=== PATIENT | female | born 1950 | race American Indian/Alaskan Native ===

== ENCOUNTER 2022-04-21 14:20 | Inpatient (IN) | payer MEDICARE ==
--- NOTE | 2022-04-21 17:32 | Emergency Department Report ---
ED Neuro Deficit HPI - General Chief Complaint: Weakness Stated Complaint: AMS/WEAKNESS Time Seen by Provider: 04/21/22 16:55 Source: family, EMS Mode of arrival: Stretcher Limitations: No Limitations - History of Present Illness Initial Comments: 72-year-old female female with a past medical history of elevated cholesterol, hypertension, heart murmur, "heart condition", and possible previous CVA/CVA in January with similar presentation presents to the hospital complaints of abnormal speech that occurred after mowing the lawn outside around 12:01 PM. Patient denies pain. Patient complains of generalized weakness. Patient also complains of some urinary incontinence which is similar to her previous presentation in January. In January she was admitted to a [place] facility and under went stroke/TIA work-up including MRI. Results unknown. Patient states she was discharged without neurologic deficits at that time. 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 Code stroke initiated after my evaluation - Related Data Allergies/Adverse Reactions: Allergies Allergy/AdvReac Type Severity Reaction Status Date / Time Iodinated Contrast Media AdvReac Angioedema Verified 04/21/22 18:42 shellfish derived AdvReac Angioedema Verified 04/21/22 18:42 ED Review of Systems ROS: Stated complaint: AMS/WEAKNESS Other details as noted in HPI Comment: All other systems reviewed and negative ED Past Medical Hx - Social History Smoking Status: Never Smoker ED Neuro Physical Exam - General Limitations: Physical Limitation Suspected Stroke: Yes - NIHSS Assessment Interval: Baseline 1a. Level of Consciousness: alert/keenly responsive 1b. LOC Questions: answers both correctly 1c. LOC Commands: performs tasks correctly 2. Best Gaze: normal 3. Visual: no visual loss 4. Facial Palsy: normal symmetrical movement 5b. Motor Arm Right: no drift 5a. Motor Arm Left: no drift 6a. Motor Leg Left: no drift 6b. Motor Leg Right: no drift 7. Limb Ataxia: absent 8. Sensory: normal 9. Best Language: no aphasia 10. Dysarthria: mild/moderate dysarthria 11. Extinction/Inattention: no abnormality Total Score: 1 Stroke Severity: Minor Stroke - Other Other exam information: General: No acute distress Head: Atraumatic Eyes: normal appearance ENT: Moist mucous membranes Neck: Normal appearance, no midline tenderness Chest: Clear to auscultation bilaterally CV: Regular rate and rhythm Abdomen: Soft, normal bowel sounds, nontender, nondistended, no rebound or guarding Back: Normal inspection Extremity: Normal inspection, full range of motion Neuro: Alert O x 3, no facial asymmetry, speech is abnormal. Patient appears to be pursing her lips shut while trying to speak, see NIH stroke scale. No other deficits noted Psych: Appropriate behavior Skin: No rash ED Course Vital Signs 04/21/22 04/21/22 04/21/22 14:56 17:01 18:39 Temperature 98.9 F Pulse Rate 80 75 65 Respiratory 16 17 17 Rate Blood Pressure 140/80 144/78 159/94 [Left] O2 Sat by Pulse 97 98 99 Oximetry 04/21/22 19:36 Temperature Pulse Rate Respiratory 10 L Rate Blood Pressure [Left] O2 Sat by Pulse 97 Oximetry - Consultations Consultation #1: 04/21/22 17: 30 Neurology consultation please refer to note - Lab Data Result diagrams: 04/21/22 17:33 04/21/22 17:33 Lab Results 04/21/22 04/21/22 04/21/22 Range/Units 17:33 17:33 17:33 WBC 6.0 (4.5-11.0) K/mm3 RBC 4.57 (3.65-5.03) M/mm3 Hgb 13.9 (10.1-14.3) gm/dl Hct 40.0 (30.3-42.9) % MCV 88 (79-97) fl MCH 30 (28-32) pg MCHC 35 H (30-34) % RDW 12.9 L (13.2-15.2) % Plt Count 183 (140-440) K/mm3 Lymph % (Auto) 26.2 (13.4-35.0) % Cross % (Auto) 9.8 H (0.0-7.3) % Eos % (Auto) 0.7 (0.0-4.3) % Baso % (Auto) 0.3 (0.0-1.8) % Lymph # (Auto) 1.6 (1.2-5.4) K/mm3 Cross # (Auto) 0.6 (0.0-0.8) K/mm3 Eos # (Auto) 0.0 (0.0-0.4) K/mm3 Baso # (Auto) 0.0 (0.0-0.1) K/mm3 Seg Neutrophils % 63.0 (40.0-70.0) % Seg Neutrophils # 3.8 (1.8-7.7) K/mm3 PT 13.6 (12.2-14.9) Sec. INR 0.94 (0.87-1.13) APTT 30.5 (24.2-36.6) Sec. Thrombin Time 15.0 L (15.1-19.6) Sec. Sodium 142 (137-145) mmol/L Potassium 4.1 (3.6-5.0) mmol/L Chloride 102.6 (98-107) mmol/L Carbon Dioxide 30 (22-30) mmol/L Anion Gap 14 mmol/L BUN 18 H (7-17) mg/dL Creatinine 1.2 (0.6-1.2) mg/dL Estimated GFR 44 ml/min BUN/Creatinine Ratio 15 % Glucose 107 H (65-100) mg/dL Calcium 9.6 (8.4-10.2) mg/dL Magnesium 2.20 (1.7-2.3) mg/dL Total Bilirubin 0.60 (0.1-1.2) mg/dL AST 17 (5-40) units/L ALT 12 (7-56) units/L Alkaline Phosphatase 76 (35-129) units/L Total Creatine Kinase 108 (30-135) units/L CK-MB (CK-2) 2.5 (0.0-4.0) ng/mL CK-MB (CK-2) Rel Index 2.3 (0-4) Troponin T < 0.010 (0.00-0.029) ng/mL Total Protein 7.1 (6.3-8.2) g/dL Albumin 4.2 (3.9-5) g/dL Albumin/Globulin Ratio 1.4 % TSH (0.270-4.200) mlU/mL Free T4 (0.76-1.46) ng/dL Plasma/Serum Alcohol (0-0.07) % 04/21/22 04/21/22 Range/Units 17:33 17:33 WBC (4.5-11.0) K/mm3 RBC (3.65-5.03) M/mm3 Hgb (10.1-14.3) gm/dl Hct (30.3-42.9) % MCV (79-97) fl MCH (28-32) pg MCHC (30-34) % RDW (13.2-15.2) % Plt Count (140-440) K/mm3 Lymph % (Auto) (13.4-35.0) % Cross % (Auto) (0.0-7.3) % Eos % (Auto) (0.0-4.3) % Baso % (Auto) (0.0-1.8) % Lymph # (Auto) (1.2-5.4) K/mm3 Cross # (Auto) (0.0-0.8) K/mm3 Eos # (Auto) (0.0-0.4) K/mm3 Baso # (Auto) (0.0-0.1) K/mm3 Seg Neutrophils % (40.0-70.0) % Seg Neutrophils # (1.8-7.7) K/mm3 PT (12.2-14.9) Sec. INR (0.87-1.13) APTT (24.2-36.6) Sec. Thrombin Time (15.1-19.6) Sec. Sodium (137-145) mmol/L Potassium (3.6-5.0) mmol/L Chloride (98-107) mmol/L Carbon Dioxide (22-30) mmol/L Anion Gap mmol/L BUN (7-17) mg/dL Creatinine (0.6-1.2) mg/dL Estimated GFR ml/min BUN/Creatinine Ratio % Glucose (65-100) mg/dL Calcium (8.4-10.2) mg/dL Magnesium (1.7-2.3) mg/dL Total Bilirubin (0.1-1.2) mg/dL AST (5-40) units/L ALT (7-56) units/L Alkaline Phosphatase (35-129) units/L Total Creatine Kinase (30-135) units/L CK-MB (CK-2) (0.0-4.0) ng/mL CK-MB (CK-2) Rel Index (0-4) Troponin T (0.00-0.029) ng/mL Total Protein (6.3-8.2) g/dL Albumin (3.9-5) g/dL Albumin/Globulin Ratio % TSH 1.360 (0.270-4.200) mlU/mL Free T4 1.17 (0.76-1.46) ng/dL Plasma/Serum Alcohol < 0.01 (0-0.07) % - Radiology Data Radiology results: report reviewed CT HEAD WITHOUT CONTRAST INDICATION / CLINICAL INFORMATION: Stroke symptoms. TECHNIQUE: All CT scans at this location are performed using CT dose reduction for ALARA by means of automated exposure control. COMPARISON: None available. FINDINGS: CEREBRAL/CEREBELLAR PARENCHYMA: The cerebral and cerebellar hemispheres are normal for age. No CT evidence for an acute or subacute territorial infarct. HEMORRHAGE: No acute intra-axial hemorrhage or extra-axial fluid collection. MASS: No mass or mass effect. VENTRICULAR SYSTEM: Normal in size and morphology for the patient's age. ORBITS: Normal as visualized. SOFT TISSUES/SKULL: No scalp hematoma or skull fracture. Benign left frontal scalp lipoma (series 2, image 14). PARANASAL SINUSES/MASTOID AIR CELLS: Normal as visualized. IMPRESSION: 1. No acute intracranial process. - Medical Decision Making 72-year-old female presents with with slurred speech without any other deficits. CT head unremarkable. Patient states she is allergic to IV contrast therefore CT angiogram not performed. Differential includes acute CVA, TIA, suprat entorium, generalized weakness, UTI, or encephalopathy. Patient will be admitted to the hospital service for further work-up and evaluation. Urine collection pending at disposition Critical Care Time: No Critical care attestation.: If time is entered above; I have spent that time in minutes in the direct care of this critically ill patient, excluding procedure time. ED Disposition Clinical Impression: Acute focal neurological deficit, Slurred speech Disposition: ADMITTED INPATIENT Is pt being admited?: Yes Condition: Stable Time of Disposition: 19:48
--- NOTE | 2022-04-21 17:39 | Consultation ---
History of Present Illness - Reason for Consult Consult date: 04/21/22 - History of Present Illness [facility] Consult Note # Demographics Consult Type: Acute Stroke Level 1 (0-4.5 hrs) Patient Location: Emergency Room First Name: janak Last Name: alexei Date of : 1950 Age: 72 Gender: Female Facility: [facility] Time of Initial Page ( Time): 04/21/2022, 17:31 Time of Return Call ( Time): 04/21/2022, 17:31 # HPI History: 72yo woman who was cutting grass, and then went into the house and sat down in her chair. She felt weak all over, and did have LOC episode. She is not moving her lips. She was admitted in January to another hospital, and had evaluation with MRI; unsure what the result was at that time. Last Known Normal: between 12PM-1PM. # Scores Time of exam and NIHSS ( Time): 04/21/2022, 17:33 Level of Consciousness 1a: [0] = Alert; keenly responsive LOC Questions 1b: [0] = Answers both questions correctly LOC Commands 1c: [0] = Performs both tasks correctly Best Gaze 2: [0] = Normal Visual 3: [0] = No visual loss Facial Palsy 4: [1] = Minor paralysis Motor Arm Left 5a: [0] = No drift Motor Arm Right 5b: [0] = No drift Motor Leg Left 6a: [0] = No drift Motor Leg Right 6b: [0] = No drift Limb Ataxia 7: [0] = Absent Sensory 8: [0] = Normal Best Language 9: [0] = No aphasia Dysarthria 10: [0] = Normal Extinction and Inattention 11: [0] = No abnormality NIHSS Total: 1 # Assessment Impression: Ischemic Stroke (Acute) vs inorganic # Plan Thrombolytic/Intervention: NOT IV Thrombolysis or IA Intervention candidate Thrombolytic Exclusion: > 4.5 hours Intraarterial Exclusion: clinically not consistent with stroke Target Blood Pressure: SBP < 220 Labs: lipid panel Imaging: (urgency: STAT): CT Angiogram Head and CT Angiogram Neck AND call back with results if abnormal Imaging: (urgency: routine): MRI Brain without contrast Diagnostic Test: echo without bubble study Therapy/Evaluation: NPO until swallow evaluation PT/OT evaluation speech/swallow consultation Medication: aspirin 81 mg daily DVT Prophylaxis: SCD chemical DVT prophylaxis Other: LDL < 70 If patient has any neurological deterioration please call me back immediately permissive hypertension telemetry monitoring would not pursue stroke work-up if MRI is negative I have discussed my recommendations with the referring provider Disposition: admit # Demographics First Name: janak Last Name: alexei Facility: [facility] Medications and Allergies Allergies Allergy/AdvReac Type Severity Reaction Status Date / Time No Known Allergies Allergy Verified 04/21/22 14:59 Exam - Constitutional Vitals: Temp Pulse Resp BP Pulse Ox 98.9 F 75 17 144/78 98 04/21/22 14:56 04/21/22 17:01 04/21/22 17:01 04/21/22 17:01 04/21/22 17:01
[2022-04-21 17:50] LABS: Basophils % (Auto) 0.3 % (0.0-1.8); Eosinophils % (Auto) 0.7 % (0.0-4.3); Hemoglobin 13.9 gm/dl (10.1-14.3); Lymphocytes # (Auto) 1.6 K/mm3 (1.2-5.4); Lymphocytes % (Auto) 26.2 % (13.4-35.0); Mean Corpuscular HGB Conc 35 % (30-34); Mean Corpuscular Volume 88 fl (79-97); Monocytes # (Auto) 0.6 K/mm3 (0.0-0.8); Monocytes % (Auto) 9.8 % (0.0-7.3); Platelet Count 183 K/mm3 (140-440); Red Blood Count 4.57 M/mm3 (3.65-5.03); Red Cell Distribution Width 12.9 % (13.2-15.2)
--- NOTE | 2022-04-21 17:57 | Cat Scan Report ---
CT HEAD WITHOUT CONTRAST INDICATION / CLINICAL INFORMATION: Stroke symptoms. TECHNIQUE: All CT scans at this location are performed using CT dose reduction for ALARA by means of automated exposure control. COMPARISON: None available. FINDINGS: CEREBRAL/CEREBELLAR PARENCHYMA: The cerebral and cerebellar hemispheres are normal for age. No CT kristie dence for an acute or subacute territorial infarct. HEMORRHAGE: No acute intra-axial hemorrhage or extra-axial fluid collection. MASS: No mass or mass effect. VENTRICULAR SYSTEM: Normal in size and morphology for the patient's age. ORBITS: Normal as visualized. SOFT TISSUES/SKULL: No scalp hematoma or skull fracture. Benign left frontal scalp lipoma (series 2, image 14). PARANASAL SINUSES/MASTOID AIR CELLS: Normal as visualized. IMPRESSION: 1. No acute intracranial process. Signer Name: Chris Henson MD Signed: 04/21/2022 5:53 PM Workstation Name: [employer]
[2022-04-21 18:06] LABS: Alanine Aminotransferase 12 units/L (7-56); Albumin 4.2 g/dL (3.9-5); BUN/Creatinine Ratio 15; Blood Urea Nitrogen 18 mg/dL (7-17); Calcium 9.6 mg/dL (8.4-10.2); Creatine Kinase MB 2.5 ng/mL (0.0-4.0); Hemolysis Index 6
[2022-04-21 18:17] LABS: Free T4 (Free Thyroxine) 1.17 ng/dL (0.76-1.46)
[2022-04-21 19:41] LABS: INR 0.94 (0.87-1.13)
[2022-04-21 19:42] LABS: Partial Thromboplastin Time 30.5 Sec. (24.2-36.6)
[2022-04-21] MEDS ORDERED: ACETAMINOPHEN 325 MG TAB PO PRN (19:55)
[2022-04-21] MEDS ORDERED: ONDANSETRON 4 MG/2 ML INJ IV PRN (19:55)
[2022-04-21] MEDS ORDERED: METOCLOPRAMIDE 10 MG TAB PO PRN (19:55)
[2022-04-21] MEDS ORDERED: oxyCODONE /ACETAMINOPHEN 5-325MG TAB PO PRN (19:55)
[2022-04-21] MEDS ORDERED: HYDROmorphone 0.5 MG/0.5 ML INJ IV PRN (19:55)
[2022-04-21] MEDS ORDERED: PROMETHAZINE 25 MG RECT SUPP PR PRN (19:55)
[2022-04-21] MEDS ORDERED: MAGNESIUM HYDROXIDE (MOM) ORAL LIQD UDC PO PRN (19:55)
--- NOTE | 2022-04-21 19:55 | History and Physical Report ---
History of Present Illness Chief complaint: My speech is slurred History of present illness: 72 YO Female with HTN, HLD, CVA not on antiplatelet therapy presents to ED for evaluation. Patient reports "my speech is slurred". Patient states that she was in her usual state of health and was mowing her lawn around 1200 hrs. today. Patient states that shortly after mowing her lawn she noticed that she had slurred speech and difficulty swallowing. EMS was notified and upon arrival the patient was found to be in distress with a new focal neurologic deficit. A code stroke was called and the patient was subsequent transported to [facility] for further care and evaluation of the aforementioned symptoms. The patient was seen and evaluated in the emergency department. All lab and imaging studies reviewed. Patient found to have clinical symptoms consistent with CVA. Patient initiated on CVA protocol. Teleneurology consulted in ED. Patient denies fever, chills, chest pain, palpitation, productive cough, skin rash, recent contact, known exposure to COVID-19. No prior admission for review. No medication listed at time of admission for reconciliation. Advanced care planning conducted in ED. Past History Past Medical History: hypertension, hyperlipidemia, stroke, other (See HPI) Past Surgical History: No surgical history, Other (Reviewed) Social history: single. denies: smoking, alcohol abuse, prescription drug abuse Family history: hypertension Medications and Allergies Allergies Allergy/AdvReac Type Severity Reaction Status Date / Time Iodinated Contrast Media AdvReac Angioedema Verified 04/21/22 18:42 shellfish derived AdvReac Angioedema Verified 04/21/22 18:42 Review of Systems Constitutional: no weight loss, no weight gain, no fever, no sweats Ears, nose, mouth and throat: no ear pain, no ear discharge, no tinnitis, no decreased hearing Breasts: no change in shape, no mass Cardiovascular: no orthopnea, no palpitations, no edema, no syncope Respiratory: no cough, no excessive sputum, no dyspnea on exertion Gastrointestinal: no abdominal pain, no vomiting, no change in bowel habits, no hematemesis Genitourinary Female: no pelvic pain, no flank pain, no dysuria, no urinary frequency, no urgency Rectal: no pain, no incontinence, no bleeding Musculoskeletal: no neck stiffness, no neck pain, no shooting arm pain, no arm numbness/tingling, no low back pain Integumentary: no rash, no pruritis, no sores Neurological: weakness, change in speech, motor disturbance Psychiatric: no anxiety, no memory loss, no change in sleep habits, no insomnia, no hypersomnia, no change in libido, no suicidal ideation, no hallucinations Endocrine: no polyphagia, no polydipsia, no polyuria Hematologic/Lymphatic: no easy bruising, no easy bleeding Allergic/Immunologic: no urticaria, no allergic rhinitis, no wheezing Exam - Constitutional Vitals: Temp Pulse Resp BP Pulse Ox 98.9 F 65 10 L 159/94 97 04/21/22 14:56 04/21/22 18:39 04/21/22 19:36 04/21/22 18:39 04/21/22 19:36 General appearance: Present: mild distress - EENT Eyes: Present: PERRL ENT: hearing intact, clear oral mucosa - Neck Neck: Present: supple, normal ROM - Respiratory Respiratory effort: normal Respiratory: bilateral: CTA - Cardiovascular Heart Sounds: Present: S1 & S2. Absent: rub, click - Extremities Extremities: pulses symmetrical, No edema Peripheral Pulses: within normal limits - Abdominal General gastrointestinal: Present: soft, non-tender, non-distended, normal bowel sounds Female genitourinary: Present: normal - Integumentary Integumentary: Present: clear, warm, dry - Musculoskeletal Musculoskeletal: gait normal, strength equal bilaterally - Psychiatric Psychiatric: appropriate mood/affect, intact judgment & insight - Neurologic Neurologic: CNII-XII intact, moves all extremities HEART Score - HEART Score Troponin: Troponin T < 0.010 ng/mL (0.00-0.029) 04/21/22 17:33 Results - Labs CBC & Chem 7: 04/21/22 17:33 04/21/22 17:33 Labs: Abnormal lab results 04/21/22 04/21/22 04/21/22 Range/Units 17:33 17:33 17:33 MCHC 35 H (30-34) % RDW 12.9 L (13.2-15.2) % [place] % (Auto) 9.8 H (0.0-7.3) % Thrombin Time 15.0 L (15.1-19.6) Sec. BUN 18 H (7-17) mg/dL Glucose 107 H (65-100) mg/dL Assessment and Plan - Patient Problems (1) CVA (cerebral vascular accident) Current Visit: Yes Status: Acute Plan to address problem: CVA protocol: CT scan brain, physical therapy consulted, Occupational Therapy consulted, speech therapy consulted, dual antiplatelet therapy, carotid Doppler, echocardiogram, lipid panel, statin therapy (2) Dysphagia due to recent stroke Current Visit: Yes Status: Acute Plan to address problem: Speech therapy consulted, bedside swallow eval. (3) Hypertension Current Visit: Yes Status: Acute Qualifiers: Hypertension type: primary hypertension Qualified Code(s): I10 - Essential (primary) hypertension Plan to address problem: Monitor blood pressure every shift, can permissive hypertension overnight. (4) Hyperlipidemia Current Visit: Yes Status: Acute Qualifiers: Hyperlipidemia type: mixed hyperlipidemia Qualified Code(s): E78.2 - Mixed hyperlipidemia Plan to address problem: Lipid panel, statin therapy (5) DVT prophylaxis Current Visit: Yes Status: Acute Plan to address problem: SCD to bilateral lower extremities while in bed (6) Advance care planning Current Visit: Yes Status: Acute Plan to address problem: Disease education data, care plan discussed, diagnoses discussed, prognosis discussed, patient is full code. Patient knowledges understanding and agreement with care plan, +30 minutes. (7) Preventative health care Current Visit: Yes Status: Acute Plan to address problem: Patient counseled regarding medication compliance, outpatient follow-up with primary care physician for all age and risk factor appropriate screening test. +30 minutes.
[2022-04-21 20:28] LABS: Color,Urine Yellow (Yellow)
[2022-04-21 20:30] LABS: Bacteria,Urine 1+ /HPF (Negative); Mucus,Urine 1+ /HPF
[2022-04-21 20:31] LABS: Amphetamine Screen,Urine Negative; Benzodiazepines Screen,Urine Negative; Cannabinoid Screen,Urine Negative; Cocaine Screen,Urine Negative; Methadone Screen,Urine Negative; Opiate Screen,Urine Negative
--- NOTE | 2022-04-22 09:53 | Progress Note ---
Assessment and Plan Assessment and plan: 72 YO Female with HTN, HLD, CVA not on antiplatelet therapy presents to ED for evaluation of dysarthria and dysphagia. The patient was admitted with diagnosis below: Acute CVA Dysphagia/dysarthria Hypertension Hyperlipidemia 04/22/2022. Patient reports similar symptoms in January of this year with the patient was treated at [facility]. We will attempt obtain old records from [facility]. Patient's symptoms have completely resolved and she is back to her baseline with regards to her speech and swallowing. CT scan was negative for CVA. We will follow-up MRI and echocardiogram. Anticipate discharge later today or in a.m. Continue secondary prevention with Lipitor and aspirin History Interval history: No new issues overnight Hospitalist Physical - Constitutional Vitals: Temp Pulse Resp BP Pulse Ox 97.8 F 117 H 18 158/83 97 04/21/22 22:47 04/21/22 23:41 04/22/22 00:00 04/21/22 23:41 04/22/22 08:48 General appearance: Present: no acute distress - EENT Eyes: Present: PERRL, EOM intact ENT: hearing intact, clear oral mucosa, dentition normal - Neck Neck: Present: supple, normal ROM - Respiratory Respiratory effort: normal Respiratory: bilateral: CTA - Cardiovascular Rhythm: regular Heart Sounds: Present: S1 & S2. Absent: gallop, rub - Extremities Extremities: no ischemia, No edema, Full ROM - Abdominal General gastrointestinal: soft, non-tender, non-distended, normal bowel sounds - Integumentary Integumentary: Present: clear, warm, dry - Neurologic Neurologic: CNII-XII intact, moves all extremities HEART Score - HEART Score Troponin: Troponin T < 0.010 ng/mL (0.00-0.029) 04/21/22 17:33 Results - Labs CBC & Chem 7: 04/21/22 17:33 04/21/22 17:33 Labs: Laboratory Last Values WBC 6.0 K/mm3 (4.5-11.0) 04/21/22 17:33 RBC 4.57 M/mm3 (3.65-5.03) 04/21/22 17:33 Hgb 13.9 gm/dl (10.1-14.3) 04/21/22 17:33 Hct 40.0 % (30.3-42.9) 04/21/22 17: MCV 88 fl (79-97) 04/21/22: MCH 30 pg (28-32) 04/21/22 17: MCHC 35 % (30-34) H 04/21/22 17: RDW 12.9 % (13.2-15.2) L 04/21/22: Plt Count 183 K/mm3 (140-440) 04/21/22 17: Lymph % (Auto) 26.2 % (13.4-35.0) 04/21/22: [place] % (Auto) 9.8 % (0.0-7.3) H 04/21/22: Eos % (Auto) 0.7 % (0.0-4.3) 04/21/22: Baso % (Auto) 0.3 % (0.0-1.8) 04/21/22: Lymph # (Auto) 1.6 K/mm3 (1.2-5.4) 04/21/22 17: [place] # (Auto) 0.6 K/mm3 (0.0-0.8) 04/21/22: Eos # (Auto) 0.0 K/mm3 (0.0-0.4) 04/21/22: Baso # (Auto) 0.0 K/mm3 (0.0-0.1) 04/21/22: Seg Neutrophils % 63.0 % (40.0-70.0) 04/21/22: Seg Neutrophils # 3.8 K/mm3 (1.8-7.7) 04/21/22: PT 13.6 Sec. (12.2-14.9) 04/21/22: INR 0.94 (0.87-1.13) 04/21/22: APTT 30.5 Sec. (24.2-36.6) 04/21/22: Thrombin Time 15.0 Sec. (15.1-19.6) L 04/21/22 17: Sodium 142 mmol/L (137-145) 04/21/22 17: Potassium 4.1 mmol/L (3.6-5.0) 04/21/22 17:33 Chloride 102.6 mmol/L (98-107) 04/21/22 17:33 Carbon Dioxide 30 mmol/L (22-30) 04/21/22 17:33 Anion Gap 14 mmol/L 04/21/22 17:33 BUN 18 mg/dL (7-17) H 04/21/22 17:33 Creatinine 1.2 mg/dL (0.6-1.2) 04/21/22 17:33 Estimated GFR 44 ml/min 04/21/22 17:33 BUN/Creatinine Ratio 15 % 04/21/22 17:33 Glucose 107 mg/dL (65-100) H 04/21/22 17:33 Calcium 9.6 mg/dL (8.4-10.2) 04/21/22 17:33 Magnesium 2.20 mg/dL (1.7-2.3) 04/21/22 17:33 Total Bilirubin 0.60 mg/dL (0.1-1.2) 04/21/22 17:33 AST 17 units/L (5-40) 04/21/22 17:33 ALT 12 units/L (7-56) 04/21/22 17:33 Alkaline Phosphatase 76 units/L (35-129) 04/21/22 17:33 Total Creatine Kinase 108 units/L (30-135) 04/21/22 17:33 CK-MB (CK-2) 2.5 ng/mL (0.0-4.0) 04/21/22 17:33 CK-MB (CK-2) Rel Index 2.3 (0-4) 04/21/22 17:33 Troponin T < 0.010 ng/mL (0.00-0.029) 04/21/22 17:33 Total Protein 7.1 g/dL (6.3-8.2) 04/21/22 17:33 Albumin 4.2 g/dL (3.9-5) 04/21/22 17:33 Albumin/Globulin Ratio 1.4 % 04/21/22 17:33 TSH 1.360 mlU/mL (0.270-4.200) 04/21/22 17:33 Free T4 1.17 ng/dL (0.76-1.46) 04/21/22 17:33 Urine Color Yellow (Yellow) 04/21/22 19:32 Urine Turbidity Clear (Clear) 04/21/22 19:32 Specific [place] (Man) 1.025 (1.003-1.030) 04/21/22 19:32 Ur Protein (Man) 1+ mg/dL (Negative) 04/21/22 19:32 Ur Ketones (Man) Negative (Negative) 04/21/22 19:32 Ur Nitrite (Man) Negative (Negative) 04/21/22 19:32 Urine Bilirubin (Man) Negative (Negative) 04/21/22 19:32 Leukocyte Esterase (Man) Negative (Negative) 04/21/22 19:32 Urine WBC (Auto) 1.0 /HPF (0.0-6.0) 04/21/22 19:32 Urine RBC (Auto) 1.0 /HPF (0.0-6.0) 04/21/22 19:32 U Epithel Cells (Auto) 11.0 /HPF (0-13.0) 04/21/22 19:32 Urine Bacteria (Auto) 1+ /HPF (Negative) 04/21/22 19:32 Urine RBC (Manual) Trace (Negative) 04/21/22 19:32 Urine Mucus 1+ /HPF 04/21/22 19:32 Urine Opiates Screen Negative 04/21/22 19:32 Urine Methadone Screen Negative 04/21/22 19:32 Ur Barbiturates Screen Negative 04/21/22 19:32 Ur Phencyclidine Scrn Negative 04/21/22 19:32 Ur Amphetamines Screen Negative 04/21/22 19:32 U Benzodiazepines Scrn Negative 04/21/22 19:32 Urine Cocaine Screen Negative 04/21/22 19:32 U Marijuana (THC) Screen Negative 04/21/22 19:32 Drugs of Abuse Note Disclamer 04/21/22 19:32 Plasma/Serum Alcohol < 0.01 % (0-0.07) 04/21/22 17:33 Active Medications - Current Medications Current Medications: Generic Name Dose Route Start Last Admin Trade Name Freq PRN Reason Stop Dose Admin Acetaminophen 650 mg 04/21/22 19:55 Acetaminophen 325 Mg Tab PO Q4H PRN Pain, Mild (1-3) Aspirin 325 mg 04/22/22 10:00 Aspirin 325 Mg Tab PO QDAY JOSHUA Atorvastatin Calcium 40 mg 04/21/22 22:00 09/02/22 23:20 Atorvastatin 40 Mg Tab PO 40 mg QHS JOSHUA Administration Bisacodyl 10 mg 04/21/22 19:55 Bisacodyl 10 Mg Rect Supp MS QDAY PRN Constipation Clopidogrel Bisulfate 75 mg 04/22/22 10:00 Clopidogrel 75 Mg Tab PO QDAY JOSHUA Hydromorphone HCl 0.5 mg 04/21/22 19:55 Hydromorphone 0.5 Mg/0.5 Ml Inj IV Q23H PRN Pain , Severe (7-10) Magnesium Hydroxide 30 ml 04/21/22 19:55 Magnesium Hydroxide (Mom) Oral Liqd Udc PO Q4H PRN Constipation Metoclopramide HCl 10 mg 04/21/22 19:55 Metoclopramide 10 Mg Tab PO Q6H PRN Nausea And Vomiting Ondansetron HCl 4 mg 04/21/22 19:55 Ondansetron 4 Mg/2 Ml Inj IV Q8H PRN Nausea And Vomiting Oxycodone/Acetaminophen 1 tab 04/21/22 19:55 Oxycodone /Acetaminophen 5-325mg Tab PO Q16H PRN Pain, Moderate (4-6) Promethazine HCl 25 mg 04/21/22 19:55 Promethazine 25 Mg Rect Supp MS Q6H PRN Nausea And Vomiting Sodium Chloride 10 ml 04/21/22 19:55 Sodium Chloride 0.9% 10 Ml Flush Syringe IV PRN PRN LINE FLUSH
[2022-04-22] MEDS: ASPIRIN 325 MG TAB PO SCH (11:57)
[2022-04-22] MEDS: CLOPIDOGREL 75 MG TAB PO SCH (11:57)
--- NOTE | 2022-04-22 14:38 | Vascular Lab Report ---
DUPLEX DOPPLER ULTRASOUND CAROTID, BILATERAL INDICATION / CLINICAL INFORMATION: stroke. COMPARISON: None available. FINDINGS: RIGHT CAROTID: No significant plaque - PLAQUE ESTIMATE (%): < 50% - CCA velocity: 82 cm/sec. - ICA peak systolic velocity: 83 cm/sec. - ICA/CCA PSV Ratio: Less than 2 Right Vertebral Artery: Antegrade flow. LEFT CAROTID: No significant plaque - PLAQUE ESTIMATE (%): < 50% - CCA velocity: 92 cm/sec. - ICA peak systolic velocity: 103 cm/sec. - ICA/CCA PSV Ratio: Less than 2 Left Vertebral Artery: Antegrade flow. IMPRESSION: 1. Right Internal Carotid Artery: Less than 50% diameter stenosis. 2. Left Internal Carotid Artery: Less than 50% diameter stenosis. Velocity criteria are extrapolated from diameter data as defined by the Society of Radiologists in Ul trasound Consensus Conference, Radiology 2003; 229;340-346. NO STENOSIS (NORMAL) - Plaque = none; ICA PSV < 125 cm/sec; ICA/CCA PSV Ratio < 2.0 <50% STENOSIS - Plaque < 50%; ICA PSV < 125 cm/sec; ICA/CCA PSV Ratio < 2.0 50-69% STENOSIS - Plaque > 50%; ICA PSV = 125-230 cm/sec; ICA/CCA PSV Ratio = 2.0-4.0 >70% BUT <100% STENOSIS - Plaque > 50%; ICA PSV > 230 cm/sec; ICA/CCA PSV Ratio > 4.0 NEAR OCCLUSION - Plaque = visible lumen; ICA PSV = high/low/none; ICA/CCA PSV Ratio = variable TOTAL OCCLUSION - Plaque = no lumen; ICA PSV = none; ICA/CCA PSV Ratio = N/A Signer Name: Oscar Knowles MD Signed: 04/22/2022 2:34 PM Workstation Name: [id number]
[2022-04-23] MEDS ORDERED: hydrALAZINE 20 MG/1 ML INJ IV ONE (06:21)
[2022-04-23] MEDS ORDERED: SODIUM CHLORIDE 0.9% 500 ML 500 ML IV SCH (07:00)
[2022-04-23] MEDS ORDERED: SODIUM CHLORIDE 0.9% 500 ML 500 ML ONE (07:05)
--- NOTE | 2022-04-23 10:36 | Progress Note ---
Assessment and Plan Assessment and plan: 72 YO Female with HTN, HLD, CVA not on antiplatelet therapy presents to ED for evaluation of dysarthria and dysphagia. The patient was admitted with diagnosis below: Acute CVA Dysphagia/dysarthria Hypertension Hyperlipidemia 04/22/2022. Patient reports similar symptoms in January of this year with the patient was treated at [facility]. We will attempt obtain old records from [facility]. Patient's symptoms have completely resolved and she is back to her baseline with regards to her speech and swallowing. CT scan was negative for CVA. We will follow-up MRI and echocardiogram. Anticipate discharge later today or in a.m. Continue secondary prevention with Lipitor and aspirin. 04/23/2022. 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 However, patient asymptomatic. Continue with IV fluid. Await MRI and echocardiogram results. Patient back to baseline neurologically. History Interval history: No new issues overnight Hospitalist Physical - Constitutional Vitals: Temp Pulse Resp BP Pulse Ox 97.7 F 64 18 170/65 97 04/23/22 05:59 04/23/22 05:59 04/23/22 05:59 04/23/22 06:23 04/23/22 05:59 General appearance: Present: no acute distress - EENT Eyes: Present: PERRL, EOM intact ENT: hearing intact, clear oral mucosa, dentition normal - Neck Neck: Present: supple, normal ROM - Respiratory Respiratory effort: normal Respiratory: bilateral: CTA - Cardiovascular Rhythm: regular Heart Sounds: Present: S1 & S2. Absent: gallop, rub - Extremities Extremities: no ischemia, No edema, Full ROM - Abdominal General gastrointestinal: soft, non-tender, non-distended, normal bowel sounds - Integumentary Integumentary: Present: clear, warm, dry - Neurologic Neurologic: CNII-XII intact, moves all extremities HEART Score - HEART Score Troponin: Troponin T < 0.010 ng/mL (0.00-0.029) 04/21/22 17:33 Results - Labs CBC & Chem 7: 04/21/22 17:33 04/21/22 17:33 Labs: Laboratory Last Values WBC 6.0 K/mm3 (4.5-11.0) 04/21/22 17:33 RBC 4.57 M/mm3 (3.65-5.03) 04/21/22 17: Hgb 13.9 gm/dl (10.1-14.3) 04/21/22 17: Hct 40.0 % (30.3-42.9) 04/21/22 17: MCV 88 fl (79-97) 04/21/22 17:33 MCH 30 pg (28-32) 04/21/22 17: MCHC 35 % (30-34) H 04/21/22 17: RDW 12.9 % (13.2-15.2) L 04/21/22 17: Plt Count 183 K/mm3 (140-440) 04/21/22 17: Lymph % (Auto) 26.2 % (13.4-35.0) 04/21/22 17:33 [place] % (Auto) 9.8 % (0.0-7.3) H 04/21/22 17: Eos % (Auto) 0.7 % (0.0-4.3) 04/21/22: Baso % (Auto) 0.3 % (0.0-1.8) 04/21/22 17: Lymph # (Auto) 1.6 K/mm3 (1.2-5.4) 04/21/22 17:33 [place] # (Auto) 0.6 K/mm3 (0.0-0.8) 04/21/22 17: Eos # (Auto) 0.0 K/mm3 (0.0-0.4) 04/21/22: Baso # (Auto) 0.0 K/mm3 (0.0-0.1) 04/21/22 17: Seg Neutrophils % 63.0 % (40.0-70.0) 04/21/22 17: Seg Neutrophils # 3.8 K/mm3 (1.8-7.7) 04/21/22 17: PT 13.6 Sec. (12.2-14.9) 04/21/22 17: INR 0.94 (0.87-1.13) 04/21/22 17: APTT 30.5 Sec. (24.2-36.6) 04/21/22 17: Thrombin Time 15.0 Sec. (15.1-19.6) L 04/21/22 17:33 Sodium 142 mmol/L (137-145) 04/21/22 17:33 Potassium 4.1 mmol/L (3.6-5.0) 04/21/22 17:33 Chloride 102.6 mmol/L (98-107) 04/21/22 17:33 Carbon Dioxide 30 mmol/L (22-30) 04/21/22 17:33 Anion Gap 14 mmol/L 04/21/22 17:33 BUN 18 mg/dL (7-17) H 04/21/22 17:33 Creatinine 1.2 mg/dL (0.6-1.2) 04/21/22 17:33 Estimated GFR 44 ml/min 04/21/22 17:33 BUN/Creatinine Ratio 15 % 04/21/22 17:33 Glucose 107 mg/dL (65-100) H 04/21/22 17:33 POC Glucose 135 mg/dL (70-105) H 04/23/22 07:05 Calcium 9.6 mg/dL (8.4-10.2) 04/21/22 17:33 Magnesium 2.20 mg/dL (1.7-2.3) 04/21/22 17:33 Total Bilirubin 0.60 mg/dL (0.1-1.2) 04/21/22 17:33 AST 17 units/L (5-40) 04/21/22 17:33 ALT 12 units/L (7-56) 04/21/22 17:33 Alkaline Phosphatase 76 units/L (35-129) 04/21/22 17:33 Total Creatine Kinase 108 units/L (30-135) 04/21/22 17:33 CK-MB (CK-2) 2.5 ng/mL (0.0-4.0) 04/21/22 17:33 CK-MB (CK-2) Rel Index 2.3 (0-4) 04/21/22 17:33 Troponin T < 0.010 ng/mL (0.00-0.029) 04/21/22 17:33 Total Protein 7.1 g/dL (6.3-8.2) 04/21/22 17:33 Albumin 4.2 g/dL (3.9-5) 04/21/22 17:33 Albumin/Globulin Ratio 1.4 % 04/21/22 17:33 TSH 1.360 mlU/mL (0.270-4.200) 04/21/22 17:33 Free T4 1.17 ng/dL (0.76-1.46) 04/21/22 17:33 Urine Color Yellow (Yellow) 04/21/22 19:32 Urine Turbidity Clear (Clear) 04/21/22 19:32 Specific [place] (Man) 1.025 (1.003-1.030) 04/21/22 19:32 Ur Protein (Man) 1+ mg/dL (Negative) 04/21/22 19:32 Ur Ketones (Man) Negative (Negative) 04/21/22 19:32 Ur Nitrite (Man) Negative (Negative) 04/21/22 19:32 Urine Bilirubin (Man) Negative (Negative) 04/21/22 19:32 Leukocyte Esterase (Man) Negative (Negative) 04/21/22 19:32 Urine WBC (Auto) 1.0 /HPF (0.0-6.0) 04/21/22 19:32 Urine RBC (Auto) 1.0 /HPF (0.0-6.0) 04/21/22 19:32 U Epithel Cells (Auto) 11.0 /HPF (0-13.0) 04/21/22 19:32 Urine Bacteria (Auto) 1+ /HPF (Negative) 04/21/22 19:32 Urine RBC (Manual) Trace (Negative) 04/21/22 19:32 Urine Mucus 1+ /HPF 04/21/22 19:32 Urine Opiates Screen Negative 04/21/22 19:32 Urine Methadone Screen Negative 04/21/22 19:32 Ur Barbiturates Screen Negative 04/21/22 19:32 Ur Phencyclidine Scrn Negative 04/21/22 19:32 Ur Amphetamines Screen Negative 04/21/22 19:32 U Benzodiazepines Scrn Negative 04/21/22 19:32 Urine Cocaine Screen Negative 04/21/22 19:32 U Marijuana (THC) Screen Negative 04/21/22 19:32 Drugs of Abuse Note Disclamer 04/21/22 19:32 Plasma/Serum Alcohol < 0.01 % (0-0.07) 04/21/22 17:33 Gill/IV: Voiding Method Toilet Active Medications - Current Medications Current Medications: Generic Name Dose Route Start Last Admin Trade Name Freq PRN Reason Stop Dose Admin Acetaminophen 650 mg 04/21/22 19:55 Acetaminophen 325 Mg Tab PO Q4H PRN Pain, Mild (1-3) Aspirin 325 mg 04/22/22 10:00 04/22/22 11:57 Aspirin 325 Mg Tab PO 325 mg QDAY JOSHUA Administration Atorvastatin Calcium 40 mg 04/21/22 22:00 04/22/22 22:33 Atorvastatin 40 Mg Tab PO 40 mg QHS JOSHUA Administration Bisacodyl 10 mg 04/21/22 19:55 Bisacodyl 10 Mg Rect Supp [place] QDAY PRN Constipation Clopidogrel Bisulfate 75 mg 04/22/22 10:00 04/22/22 11:57 Clopidogrel 75 Mg Tab PO 75 mg QDAY JOSHUA Administration Hydromorphone HCl 0.5 mg 04/21/22 19:55 Hydromorphone 0.5 Mg/0.5 Ml Inj IV Q23H PRN Pain , Severe (7-10) Sodium Chloride 500 mls @ 999 mls/hr 04/23/22 07:00 04/23/22 07:06 Nacl 0.9% 500 Ml IV 04/23/22 11:00 999 mls/hr ONCE@0700 JOSHUA Administration Magnesium Hydroxide 30 ml 04/21/22 19:55 Magnesium Hydroxide (Mom) Oral Liqd Udc PO Q4H PRN Constipation Metoclopramide HCl 10 mg 04/21/22 19:55 Metoclopramide 10 Mg Tab PO Q6H PRN Nausea And Vomiting Ondansetron HCl 4 mg 04/21/22 19:55 04/23/22 08:12 Ondansetron 4 Mg/2 Ml Inj IV 4 mg Q8H PRN Administration Nausea And Vomiting Oxycodone/Acetaminophen 1 tab 04/21/22 19:55 04/23/22 06:09 Oxycodone /Acetaminophen 5-325mg Tab PO 1 tab Q16H PRN Administration Pain, Moderate (4-6) Promethazine HCl 25 mg 04/21/22 19:55 Promethazine 25 Mg Rect Supp PA Q6H PRN Nausea And Vomiting Sodium Chloride 10 ml 04/21/22 19:55 04/23/22 08:13 Sodium Chloride 0.9% 10 Ml Flush Syringe IV 10 ml PRN PRN Administration LINE FLUSH
[2022-04-23] MEDS: ASPIRIN 325 MG TAB PO SCH (12:13)
[2022-04-23] MEDS: CLOPIDOGREL 75 MG TAB PO SCH (12:13)
--- NOTE | 2022-04-24 09:08 | Progress Note ---
Assessment and Plan Assessment and plan: 72 YO Female with HTN, HLD, CVA not on antiplatelet therapy presents to ED for evaluation of dysarthria and dysphagia. The patient was admitted with diagnosis below: Acute CVA Dysphagia/dysarthria Hypertension Hyperlipidemia 04/22/2022. Patient reports similar symptoms in January of this year with the patient was treated at [facility]. We will attempt obtain old records from [facility]. Patient's symptoms have completely resolved and she is back to her baseline with regards to her speech and swallowing. CT scan was negative for CVA. We will follow-up MRI and echocardiogram. Anticipate discharge later today or in a.m. Continue secondary prevention with Lipitor and aspirin. 04/23/2022. 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 However, patient asymptomatic. Continue with IV fluid. Await MRI and echocardiogram results. Patient back to baseline neurologically. 04/24/2022. LVEF is 55 to 60%. Saline bubble contrast does not demonstrate PFO. No thromboembolic phenomena. Carotid ultrasound is negative. Await MRI. Anticipate discharge in a.m. after MRI History Interval history: No new issues overnight Hospitalist Physical - Constitutional Vitals: Temp Pulse Resp BP Pulse Ox 97.8 F 68 18 128/72 98 04/24/22 06:21 04/24/22 06:21 04/24/22 06:21 04/24/22 06:21 04/24/22 06:21 General appearance: Present: no acute distress - EENT Eyes: Present: PERRL, EOM intact ENT: hearing intact, clear oral mucosa, dentition normal - Neck Neck: Present: supple, normal ROM - Respiratory Respiratory effort: normal Respiratory: bilateral: CTA - Cardiovascular Rhythm: regular Heart Sounds: Present: S1 & S2. Absent: gallop, rub - Extremities Extremities: no ischemia, No edema, Full ROM - Abdominal General gastrointestinal: soft, non-tender, non-distended, normal bowel sounds - Integumentary Integumentary: Present: clear, warm, dry - Neurologic Neurologic: CNII-XII intact, moves all extremities HEART Score - HEART Score Troponin: Troponin T < 0.010 ng/mL (0.00-0.029) 04/21/22 17:33 Results - Labs CBC & Chem 7: 04/21/22 17:33 04/21/22 17:33 Labs: Laboratory Last Values WBC 6.0 K/mm3 (4.5-11.0) 04/21/22 17:33 RBC 4.57 M/mm3 (3.65-5.03) 04/21/22 17:33 Hgb 13.9 gm/dl (10.1-14.3) 04/21/22 17:33 Hct 40.0 % (30.3-42.9) 04/21/22 17: MCV 88 fl (79-97) 04/21/22 17:33 MCH 30 pg (28-32) 04/21/22 17: MCHC 35 % (30-34) H 04/21/22: RDW 12.9 % (13.2-15.2) L 04/21/22: Plt Count 183 K/mm3 (140-440) 04/21/22 17:33 Lymph % (Auto) 26.2 % (13.4-35.0) 04/21/22 17:33 [place] % (Auto) 9.8 % (0.0-7.3) H 04/21/22 17:33 Eos % (Auto) 0.7 % (0.0-4.3) 04/21/22 17:33 Baso % (Auto) 0.3 % (0.0-1.8) 04/21/22 17: Lymph # (Auto) 1.6 K/mm3 (1.2-5.4) 04/21/22 17:33 [place] # (Auto) 0.6 K/mm3 (0.0-0.8) 04/21/22 17: Eos # (Auto) 0.0 K/mm3 (0.0-0.4) 04/21/22 17:33 Baso # (Auto) 0.0 K/mm3 (0.0-0.1) 04/21/22 17:33 Seg Neutrophils % 63.0 % (40.0-70.0) 04/21/22 17: Seg Neutrophils # 3.8 K/mm3 (1.8-7.7) 04/21/22 17:33 PT 13.6 Sec. (12.2-14.9) 04/21/22 17:33 INR 0.94 (0.87-1.13) 04/21/22 17:33 APTT 30.5 Sec. (24.2-36.6) 04/21/22 17:33 Thrombin Time 15.0 Sec. (15.1-19.6) L 04/21/22 17:33 Sodium 142 mmol/L (137-145) 04/21/22 17:33 Potassium 4.1 mmol/L (3.6-5.0) 04/21/22 17:33 Chloride 102.6 mmol/L (98-107) 04/21/22 17:33 Carbon Dioxide 30 mmol/L (22-30) 04/21/22 17:33 Anion Gap 14 mmol/L 04/21/22 17:33 BUN 18 mg/dL (7-17) H 04/21/22 17:33 Creatinine 1.2 mg/dL (0.6-1.2) 04/21/22 17:33 Estimated GFR 44 ml/min 04/21/22 17:33 BUN/Creatinine Ratio 15 % 04/21/22 17:33 Glucose 107 mg/dL (65-100) H 04/21/22 17:33 POC Glucose 135 mg/dL (70-105) H 04/23/22 07:05 Calcium 9.6 mg/dL (8.4-10.2) 04/21/22 17:33 Magnesium 2.20 mg/dL (1.7-2.3) 04/21/22 17:33 Total Bilirubin 0.60 mg/dL (0.1-1.2) 04/21/22 17:33 AST 17 units/L (5-40) 04/21/22 17:33 ALT 12 units/L (7-56) 04/21/22 17:33 Alkaline Phosphatase 76 units/L (35-129) 04/21/22 17:33 Total Creatine Kinase 108 units/L (30-135) 04/21/22 17:33 CK-MB (CK-2) 2.5 ng/mL (0.0-4.0) 04/21/22 17:33 CK-MB (CK-2) Rel Index 2.3 (0-4) 04/21/22 17:33 Troponin T < 0.010 ng/mL (0.00-0.029) 04/21/22 17:33 Total Protein 7.1 g/dL (6.3-8.2) 04/21/22 17:33 Albumin 4.2 g/dL (3.9-5) 04/21/22 17:33 Albumin/Globulin Ratio 1.4 % 04/21/22 17:33 TSH 1.360 mlU/mL (0.270-4.200) 04/21/22 17:33 Free T4 1.17 ng/dL (0.76-1.46) 04/21/22 17:33 Urine Color Yellow (Yellow) 04/21/22 19:32 Urine Turbidity Clear (Clear) 04/21/22 19:32 Specific [place] (Man) 1.025 (1.003-1.030) 04/21/22 19:32 Ur Protein (Man) 1+ mg/dL (Negative) 04/21/22 19:32 Ur Ketones (Man) Negative (Negative) 04/21/22 19:32 Ur Nitrite (Man) Negative (Negative) 04/21/22 19:32 Urine Bilirubin (Man) Negative (Negative) 04/21/22 19:32 Leukocyte Esterase (Man) Negative (Negative) 04/21/22 19:32 Urine WBC (Auto) 1.0 /HPF (0.0-6.0) 04/21/22 19:32 Urine RBC (Auto) 1.0 /HPF (0.0-6.0) 04/21/22 19:32 U Epithel Cells (Auto) 11.0 /HPF (0-13.0) 04/21/22 19:32 Urine Bacteria (Auto) 1+ /HPF (Negative) 04/21/22 19:32 Urine RBC (Manual) Trace (Negative) 04/21/22 19:32 Urine Mucus 1+ /HPF 04/21/22 19:32 Urine Opiates Screen Negative 04/21/22 19:32 Urine Methadone Screen Negative 04/21/22 19:32 Ur Barbiturates Screen Negative 04/21/22 19:32 Ur Phencyclidine Scrn Negative 04/21/22 19:32 Ur Amphetamines Screen Negative 04/21/22 19:32 U Benzodiazepines Scrn Negative 04/21/22 19:32 Urine Cocaine Screen Negative 04/21/22 19:32 U Marijuana (THC) Screen Negative 04/21/22 19:32 Drugs of Abuse Note Disclamer 04/21/22 19:32 Plasma/Serum Alcohol < 0.01 % (0-0.07) 04/21/22 17:33 Gill/IV: Voiding Method Toilet Active Medications - Current Medications Current Medications: Generic Name Dose Route Start Last Admin Trade Name Freq PRN Reason Stop Dose Admin Acetaminophen 650 mg 04/21/22 19:55 Acetaminophen 325 Mg Tab PO Q4H PRN Pain, Mild (1-3) Aspirin 325 mg 04/22/22 10:00 04/23/22 12:13 Aspirin 325 Mg Tab PO 325 mg QDAY JOSHUA Administration Atorvastatin Calcium 40 mg 04/21/22 22:00 04/23/22 22:19 Atorvastatin 40 Mg Tab PO 40 mg QHS JOSHUA Administration Bisacodyl 10 mg 04/21/22 19:55 Bisacodyl 10 Mg Rect Supp [place] QDAY PRN Constipation Clopidogrel Bisulfate 75 mg 04/22/22 10:00 04/23/22 12:13 Clopidogrel 75 Mg Tab PO 75 mg QDAY JOSHUA Administration Hydromorphone HCl 0.5 mg 04/21/22 19:55 Hydromorphone 0.5 Mg/0.5 Ml Inj IV Q23H PRN Pain , Severe (7-10) Magnesium Hydroxide 30 ml 04/21/22 19:55 Magnesium Hydroxide (Mom) Oral Liqd Udc PO Q4H PRN Constipation Metoclopramide HCl 10 mg 04/21/22 19:55 Metoclopramide 10 Mg Tab PO Q6H PRN Nausea And Vomiting Ondansetron HCl 4 mg 04/21/22 19:55 04/23/22 08:12 Ondansetron 4 Mg/2 Ml Inj IV 4 mg Q8H PRN Administration Nausea And Vomiting Oxycodone/Acetaminophen 1 tab 04/21/22 19:55 04/23/22 06:09 Oxycodone /Acetaminophen 5-325mg Tab PO 1 tab Q16H PRN Administration Pain, Moderate (4-6) Promethazine HCl 25 mg 04/21/22 19:55 Promethazine 25 Mg Rect Supp [place] Q6H PRN Nausea And Vomiting Sodium Chloride 10 ml 04/21/22 19:55 04/23/22 08:13 Sodium Chloride 0.9% 10 Ml Flush Syringe IV 10 ml PRN PRN Administration LINE FLUSH
[2022-04-24] MEDS: ASPIRIN 325 MG TAB PO SCH (09:12)
[2022-04-24] MEDS: CLOPIDOGREL 75 MG TAB PO SCH (09:12)
[2022-04-24] MEDS: amLODIPine 10 MG TAB PO SCH (16:00)
--- NOTE | 2022-04-24 16:42 | Electrocardiograph Report ---
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
[2022-04-24] MEDS: METOPROLOL TARTRATE 100 MG TAB PO SCH (17:10)
[2022-04-24] MEDS: LOSARTAN 50 MG TAB PO SCH (17:10)
[2022-04-25 06:45] LABS: Basophils % (Auto) 0.6 % (0.0-1.8); Eosinophils # (Auto) 0.2 K/mm3 (0.0-0.4); Eosinophils % (Auto) 4.4 % (0.0-4.3); Hematocrit 39.1 % (30.3-42.9); Hemoglobin 13.5 gm/dl (10.1-14.3); Lymphocytes # (Auto) 1.9 K/mm3 (1.2-5.4); Lymphocytes % (Auto) 42.4 % (13.4-35.0); Mean Corpuscular HGB Conc 35 % (30-34); Mean Corpuscular Volume 87 fl (79-97); Monocytes # (Auto) 0.5 K/mm3 (0.0-0.8); Platelet Count 171 K/mm3 (140-440); Red Blood Count 4.47 M/mm3 (3.65-5.03); Red Cell Distribution Width 12.9 % (13.2-15.2)
[2022-04-25 07:14] LABS: BUN/Creatinine Ratio 18; Blood Urea Nitrogen 18 mg/dL (7-17); Calcium 9.3 mg/dL (8.4-10.2); Hemolysis Index 4
[2022-04-25] MEDS: LOSARTAN 50 MG TAB PO SCH (09:31)
[2022-04-25] MEDS: METOPROLOL TARTRATE 100 MG TAB PO SCH (09:31)
[2022-04-25] MEDS: CLOPIDOGREL 75 MG TAB PO SCH (09:31)
[2022-04-25] MEDS: ASPIRIN 325 MG TAB PO SCH (09:31)
[2022-04-25] MEDS: amLODIPine 10 MG TAB PO SCH (09:31)
[2022-04-25 13:07] VITALS: BP 130/68
--- NOTE | 2022-04-25 13:13 | Discharge Summary ---
Providers - Providers Date of Admission: 04/21/22 19:55 Date of discharge: 04/25/22 Attending physician: JENNY HOANG MD 04/21/22 18:14 Speech Therapy Evaluation and Treat [CONS] Stat Reason For Exam: stroke protocol 04/21/22 19:55 Occupational Therapy Evaluate and Treat [CONS] Routine Comment: Reason For Exam: Neuro deficits Physical Therapy Evaluation and Treat [CONS] Routine Comment: Reason For Exam: Neuro deficits 04/22/22 09:53 Consult to Physician [CONS] Routine Comment: Consulting Provider: RAMAKRISHNA WHALEY Physician Instructions: Reason For Exam: CVA Primary care physician: ZORA LEVI Hospitalization Reason for admission: Presumed acute ischemic CVA Condition: Stable Pertinent studies: Reviewed. Procedures: None. Hospital course: The patient is a 72 YO Female with HTN, HLD, CVA not on antiplatelet therapy presents to ED for evaluation. Patient reports "my speech is slurred". Patient states that she was in her usual state of health and was mowing her lawn around 1200 hrs. today. Patient states that shortly after mowing her lawn she noticed that she had slurred speech and difficulty swallowing. EMS was notified and upon arrival the patient was found to be in distress with a new focal neurologic deficit. A code stroke was called and the patient was subsequent transported to [facility] for further care and evaluation of the aforementioned symptoms. The patient was seen and evaluated in the emergency department. All lab and imaging studies reviewed. Patient found to have clinical symptoms consistent with CVA. Neurology was consulted for further management. In the ED, teleneurology did not deem the patient a candidate for tPA. Patient had unremarkable CT head noncontrast. Bilateral carotid Dopplers were unremarkable. TTE revealing EF 55-60% with small LV, normal LV systolic function, mild concentric LVH. No evidence of ASD or PFO. Patient endorses being at her baseline in terms of her functional status. Occupational Therapy recommended patient go home without any additional resources needed. Physical therapy signed off after the patient endorsed being at her baseline. Patient will continue with medical management, and she will be following with neurology in the outpatient setting. Patient is medically clear for discharge. Disposition: 01 HOME / SELF CARE / HOMELESS Final Discharge Diagnosis (Prints w/discharge instructions): Presumed acute ischemic CVA, hypertension, hyperlipidemia, dysphagia/dysarthria Time spent for discharge: 45 min Core Measure Documentation - Palliative Care Palliative Care/ Comfort Measures: Not Applicable - Core Measures Any of the following diagnoses?: stroke - Stroke Discharge Requirements Statin for LDL = or >70 mg/dl on DC: Yes Anticoag for atrial fib/atrial flutter: Not Applicable Antithrombotic for ischemic stroke: Yes Exam - Constitutional Vitals: Temp Pulse Resp BP Pulse Ox 98.0 F 51 L 16 130/68 94 04/25/22 10:56 04/25/22 10:56 04/25/22 10:56 04/25/22 10:56 04/25/22 10:56 General appearance: Present: no acute distress, well-nourished - EENT Eyes: Present: PERRL, EOM intact ENT: hearing intact, clear oral mucosa, dentition normal - Neck Neck: Present: supple, normal ROM - Respiratory Respiratory effort: normal Respiratory: bilateral: CTA - Cardiovascular Rhythm: regular Heart Sounds: Present: S1 & S2 - Extremities Extremities: no ischemia, pulses intact, pulses symmetrical, No edema, normal temperature, normal color, Full ROM Peripheral Pulses: within normal limits - Abdominal General gastrointestinal: Present: soft, non-tender, non-distended, normal bowel sounds Female genitourinary: Present: deferred - Rectal Rectal Exam: deferred - Integumentary Integumentary: Present: clear, warm, dry - Musculoskeletal Musculoskeletal: strength equal bilaterally - Psychiatric Psychiatric: appropriate mood/affect, intact judgment & insight, memory intact, cooperative - Neurologic Neurologic: CNII-XII intact, moves all extremities - Allied Health Allied health notes reviewed: nursing Plan Activity: advance as tolerated Diet: low salt Additional Instructions: The patient is a 72 YO Female with HTN, HLD, CVA not on antiplatelet therapy presents to ED for evaluation. Patient reports "my speech is slurred". Patient states that she was in her usual state of health and was mowing her lawn around 1200 hrs. today. Patient states that shortly after mowing her lawn she noticed that she had slurred speech and difficulty swallowing. EMS was notified and upon arrival the patient was found to be in distress with a new focal neurologic deficit. A code stroke was called and the patient was subsequent transported to [facility] for further care and evaluation of the aforementioned symptoms. The patient was seen and evaluated in the emergency department. All lab and imaging studies reviewed. Patient found to have clinical symptoms consistent with CVA. Neurology was consulted for further management. In the ED, teleneurology did not deem the patient a candidate for tPA. Patient had unremarkable CT head noncontrast. Bilateral carotid Dopplers were unremarkable. TTE revealing EF 55-60% with small LV, normal LV systolic function, mild concentric LVH. No evidence of ASD or PFO. Patient endorses being at her baseline in terms of her functional status. Occupational Therapy recommended patient go home without any additional resources needed. Physical therapy signed off after the patient endorsed being at her baseline. Patient will continue with medical management, and she will be following with neurology in the outpatient setting. Patient is medically clear for discharge. Care Plan Goals: Patient is medically clear for discharge. Assessment: The patient is a 72 YO Female with HTN, HLD, CVA not on antiplatelet therapy presents to ED for evaluation. Patient reports "my speech is slurred". Patient states that she was in her usual state of health and was mowing her lawn around 1200 hrs. today. Patient states that shortly after mowing her lawn she noticed that she had slurred speech and difficulty swallowing. EMS was notified and upon arrival the patient was found to be in distress with a new focal neurologic deficit. A code stroke was called and the patient was subsequent transported to [facility] for further care and evaluation of the aforementioned symptoms. The patient was seen and evaluated in the emergency department. All lab and imaging studies reviewed. Patient found to have clinical symptoms consistent with CVA. Neurology was consulted for further management. In the ED, teleneurology did not deem the patient a candidate for tPA. Patient had unremarkable CT head noncontrast. Bilateral carotid Dopplers were unremarkable. TTE revealing EF 55-60% with small LV, normal LV systolic function, mild concentric LVH. No evidence of ASD or PFO. Patient endorses being at her baseline in terms of her functional status. Occupational Therapy recommended patient go home without any additional resources needed. Physical therapy signed off after the patient endorsed being at her baseline. Patient will continue with medical management, and she will be following with neurology in the outpatient setting. Patient is medically clear for discharge. Follow up with: ZORA LEVI MD [Primary Care Provider] - 7 Days CAREN SMITH MD [Staff Physician] - 7 Days Prescriptions: AtorvaSTATin [Lipitor] 40 mg PO QHS #30 tablet amLODIPine 10 mg PO QDAY #30 tablet Aspirin 81 mg PO QDAY #30 tablet Losartan [Cozaar] 50 mg PO QDAY #30 tablet Metoprolol [Lopressor TAB] 100 mg PO QDAY #60 tablet Clopidogrel [Plavix] 75 mg PO QDAY #30 tablet
--- NOTE | 2022-04-25 14:44 | Consultation ---
History of Present Illness Consult date: 04/25/22 Reason for Consult: CVA Chief complaint: Difficulty speaking History of present illness: 72 yo right-handed female with htn, hld, cva, gluacoma, cataracts, left eye blindness, who presented with shortness of breath and difficulty getting her words out. The episode lasted for ~7 to 8 hours. She is currently back at her baseline. She was not able to complete the claustrophobia and was not offered an anxiolytic (per patient). She states she is currently at her baseline. Past History Past Medical History: hypertension, hyperlipidemia, stroke, other (See HPI) Past Surgical History: No surgical history, Other (Reviewed) Social history: single. denies: smoking, alcohol abuse, prescription drug abuse Family history: hypertension Medications and Allergies Allergies Allergy/AdvReac Type Severity Reaction Status Date / Time Iodinated Contrast Media AdvReac Angioedema Verified 04/21/22 18:42 shellfish derived AdvReac Angioedema Verified 04/21/22 18:42 Home Medications Medication Instructions Recorded Confirmed Last Taken Type Pantoprazole Sodium 40 mg PO DAILY 04/22/22 04/22/22 Unknown History Aspirin 81 mg PO QDAY #30 tablet 04/25/22 Unknown Rx AtorvaSTATin [Lipitor] 40 mg PO QHS #30 tablet 04/25/22 Unknown Rx Clopidogrel [Plavix] 75 mg PO QDAY #30 tablet 04/25/22 Unknown Rx Losartan [Cozaar] 50 mg PO QDAY #30 tablet 04/25/22 Unknown Rx Metoprolol [Lopressor TAB] 100 mg PO QDAY #60 tablet 04/25/22 Unknown Rx amLODIPine 10 mg PO QDAY #30 tablet 04/25/22 Unknown Rx Active Meds: Active Medications Acetaminophen (Acetaminophen 325 Mg Tab) 650 mg PO Q4H PRN PRN Reason: Pain, Mild (1-3) Amlodipine Besylate (Amlodipine 10 Mg Tab) 10 mg PO QDAY [facility] Last Admin: 04/25/22 09:31 Dose: 10 mg Aspirin (Aspirin 325 Mg Tab) 325 mg PO QDAY [facility] Last Admin: 04/25/22 09:31 Dose: 325 mg Atorvastatin Calcium (Atorvastatin 40 Mg Tab) 40 mg PO QHS [facility] Last Admin: 04/24/22 23:48 Dose: 40 mg Bisacodyl (Bisacodyl 10 Mg Rect Supp) 10 mg [place] QDAY PRN PRN Reason: Constipation Clopidogrel Bisulfate (Clopidogrel 75 Mg Tab) 75 mg PO QDAY [facility] Last Admin: 04/25/22 09:31 Dose: 75 mg Hydromorphone HCl (Hydromorphone 0.5 Mg/0.5 Ml Inj) 0.5 mg IV Q23H PRN PRN Reason: Pain , Severe (7-10) Losartan Potassium (Losartan 50 Mg Tab) 50 mg PO QDAY [facility] Last Admin: 04/25/22 09:31 Dose: 50 mg Magnesium Hydroxide (Magnesium Hydroxide (Mom) Oral Liqd Udc) 30 ml PO Q4H PRN PRN Reason: Constipation Metoclopramide HCl (Metoclopramide 10 Mg Tab) 10 mg PO Q6H PRN PRN Reason: Nausea And Vomiting Metoprolol Tartrate (Metoprolol Tartrate 100 Mg Tab) 100 mg PO QDAY [facility] Last Admin: 04/25/22 09:31 Dose: 100 mg Ondansetron HCl (Ondansetron 4 Mg/2 Ml Inj) 4 mg IV Q8H PRN PRN Reason: Nausea And Vomiting Last Admin: 04/23/22 08:12 Dose: 4 mg Oxycodone/Acetaminophen (Oxycodone /Acetaminophen 5-325mg Tab) 1 tab PO Q16H PRN PRN Reason: Pain, Moderate (4-6) Last Admin: 04/23/22 06:09 Dose: 1 tab Promethazine HCl (Promethazine 25 Mg Rect Supp) 25 mg AK Q6H PRN PRN Reason: Nausea And Vomiting Sodium Chloride (Sodium Chloride 0.9% 10 Ml Flush Syringe) 10 ml IV PRN PRN PRN Reason: LINE FLUSH Last Admin: 04/25/22 09:30 Dose: 10 ml Review of Systems All systems: negative (as pe hpi;) Physical Examination - Vital Signs Vital Signs: Vital Signs Temp Pulse Resp BP Pulse Ox 98.9 F 80 16 140/80 97 04/21/22 14:56 04/21/22 14:56 04/21/22 14:56 04/21/22 14:56 04/21/22 14:56 - Physical Exam Narrative exam: Gen: nad, well-nourished; Head: normocephalic; Eyes: no gaze deviation; no ptosis; ENT: normal vocalization; CVS: warm and well-perfused; Pulm: no respiratory distress; GI: appears non-distended; Ext: no cyanosis appreciated at distal extremities; Skin: no acute rash at distal extremities; Heme: no pathologic ecchymosis appreciated at distal extremities; Neuro: alert, oriented to name, age, month, year, no dysarthria, no aphasia, CN 2 - PERR on right; blind at left eye (chronic); CN 3, 4, 6 - EOMI, CN 5 - facial sensation symmetric to light touch, CN 7 - facial movement symmetric, CN 8 - hearing grossly intact, CN 9, 10 - uvula midline, CN 11 symmetric shoulder movement, CN 12 - tongue midline; Motor - at least 4+/5 at all exts; Sensory - light touch symmetric, Cerebellar - fnf /hts intact, Gait - deferred secondary to fall risk; NIHSS (1a.) Level of Consciousness:0 (1b.) LOC Questions:0 (1c.) LOC Commands:0 (2.) Best Gaze:0 (3.) Visual:2 (4.) Facial Palsy:0 (5a.) Motor Arm, Left:0 (5b.) Motor Arm, Righ0t: (6a.) Motor Leg, Left:0 (6b.) Motor Leg, Right0: (7.) Limb Ataxia:0 (8.) Sensory:0 (9.) Best Language:0 (10.) Dysarthria:0 (11.) Extinction and Inattention:0 NIHSS Total Score: 2 (chronic) Results - Laboratory Findings CBC and BMP: 04/25/22 06:17 04/25/22 06:17 Abnormal Lab Findings: Abnormal Labs 04/21/22 04/21/22 04/21/22 17:33 17:33 17:33 WBC MCHC 35 H RDW 12.9 L Lymph % (Auto) [place] % (Auto) 9.8 H Eos % (Auto) Thrombin Time 15.0 L BUN 18 H Glucose 107 H POC Glucose 04/22/22 04/22/22 04/23/22 18:41 21:27 07:05 WBC MCHC RDW Lymph % (Auto) [place] % (Auto) Eos % (Auto) Thrombin Time BUN Glucose POC Glucose 108 H 118 H 135 H 04/25/22 04/25/22 06:17 06:17 WBC 4.4 L MCHC 35 H RDW 12.9 L Lymph % (Auto) 42.4 H [place] % (Auto) 12.0 H Eos % (Auto) 4.4 H Thrombin Time BUN 18 H Glucose POC Glucose Assessment and Plan 72 yo right-handed female with htn, hld, cva, gluacoma, cataracts, left eye blindness, who presented with shortness of breath and difficulty getting her words out. 1. TIA (idiopathic: ASA 81 PO qday; Plavix 75 mg PO qday x 21 days, pt cannot tolerate MRI Brain w/o contrast but has agreed to outpatient OPEN MRI Brain w/ wo contrast / OPEN MRA Head wo contrast, unremarkable TTEcho, unremarkable CUS, aim for normotension; statin therapy for a goal LDL of 70. PT/OT/ST/Swallow evaluation. Long-term risk-factor modification, including a strict diet/exercise regimen for secondary stroke prophylaxis. Stroke education prior to discharge. Followup with Stroke Neurology in 4 to 6 weeks. 2. Hypertension - aim for normotension. 3. Hyperlipidemia - goal LDL of 70 w/ statin therapy if no contraindications. 4. Shortness of Breath - workup per primary team. 5. No further acute neurologic workup; neurology will signoff. Yael Iqbal MD Neurology [id number]
== END 2022-04-25 17:18 | disposition home or self-care (01) | DRG 66 ==
LOC: ED 14:20 → 3A 19:55
PROVIDERS: ADMIT Internal Medicine; ATTEND Student in an Organized Health Care Education/Training Program
DX: I63.9 Cerebral infarction, unspecified (principal); I10 Essential (primary) hypertension; I69.391 Dysphagia following cerebral infarction; E78.2 Mixed hyperlipidemia; H54.62 Unqualified visual loss, left eye, normal vision right eye; Z79.82 Long term (current) use of aspirin; Z79.899 Other long term (current) drug therapy; Z91.041 Radiographic dye allergy status; Z82.49 Family history of ischemic heart disease and other diseases of the circulatory system; Z91.013 Allergy to seafood
CPT/HCPCS: 36415; 70450; 80048; 80053; 80307; 80320; 81001; 82550; 82553; 82962; 83735; 84439; 84443; 84484; 85025; 85610; 85670; 85730; 93005; 93306; 93880; G0378; C8929; G0480; J0360; J2405; J7040